=== PATIENT | male | born 1935 | race Caucasian/White ===

== ENCOUNTER 2019-03-16 09:43 | Emergency (ER) | payer OTHER, MEDICARE ==
[2019-03-16 10:09] VITALS: BP 103/49
--- NOTE | 2019-03-16 10:15 | ER Document Report ---
ED Medical Screen (RME) - General Chief Complaint: Flank Pain Stated Complaint: FLANK PAIN Time Seen by Provider: 03/16/19 10:11 Mode of Arrival: Ambulatory Information source: Patient Notes: 83-year-old male presented to ED for complaint of left flank pain times a week. He states she was seen at [facility] last week and started on antibiotics for UTI. He states he is not gotten better and has gotten worse. He states he drinks 4 beer a week smokes a pack a day for 66 years lives alone. He states he normally goes to the [facility]. Patient is alert oriented respirations regular and unlabored speaking in full sentences walks with even steady gait. I have greeted and performed a rapid initial assessment of this patient. A comprehensive ED assessment and evaluation of the patient, analysis of test results and completion of medical decision making process will be conducted by an additional ED providers. Dictation of this chart was performed using voice recognition software; therefore, there may be some unintended grammatical errors. TRAVEL OUTSIDE OF THE [place] IN LAST 30 DAYS: No Physical Exam - Vital signs Vitals: Temp Pulse Resp BP Pulse Ox 97.9 F 54 L 16 103/49 L 96 03/16/19 10:08 03/16/19 10:08 03/16/19 10:08 03/16/19 10:08 03/16/19 10:08 Course - Vital Signs Vital signs: Temp Pulse Resp BP Pulse Ox 97.9 F 54 L 16 103/49 L 96 03/16/19 10:08 03/16/19 10:08 03/16/19 10:08 03/16/19 10:08 03/16/19 10:08
[2019-03-16 10:44] LABS: ABSOLUTE BASOPHILS # (AUTO) 0.1 10^3/uL (0.0-0.2); ABSOLUTE EOSINOPHILS # (AUTO) 0.2 10^3/uL (0.0-0.6); ABSOLUTE LYMPHOCYTES (AUTO) 1.3 10^3/uL (0.5-4.7); ABSOLUTE MONOCYTES (AUTO) 0.8 10^3/uL (0.1-1.4); ABSOLUTE NEUT (AUTO) 7.8 10^3/uL (1.7-8.2); BASOPHILS % (AUTO) 0.8 % (0-2); EOSINOPHILS % (AUTO) 1.5 % (0-6); HEMATOCRIT 45.7 % (37.9-51.0); HEMOGLOBIN 15.5 g/dL (13.5-17.0); LYMPHOCYTES % (AUTO) 13.1 % (13-45); MEAN CORPUSCULAR HEMOGLOBIN 31.1 pg (27.0-33.4); MEAN CORPUSCULAR VOLUME 91 fl (80-97); MONOCYTES % (AUTO) 8.1 % (3-13); PLATELET COUNT 195 10^3/uL (150-450); RED CELL DISTRIBUTION WIDTH 13.9 % (11.5-14.0); SEGMENTED NEUTROPHILS % (AUTO) 76.5 % (42-78); TOTAL CELLS COUNTED % (AUTO) 100 %; WHITE BLOOD COUNT 10.2 10^3/uL (4.0-10.5)
[2019-03-16 11:00] LABS: URIC ACID CRYSTALS,URINE TOO NUMEROUS TO CNT /HPF
[2019-03-16 11:03] LABS: APPEARANCE,URINE SLIGHTLY HAZY; BILIRUBIN,URINE NEGATIVE (NEGATIVE); COLOR,URINE YELLOW; GLUCOSE, URINE NEGATIVE (NEGATIVE); KETONES,URINE NEGATIVE (NEGATIVE); LEUKOCYTE ESTERASE,URINE LARGE (NEGATIVE); NITRITE,URINE NEGATIVE (NEGATIVE); PROTEIN,URINE NEGATIVE (NEGATIVE); UROBILINOGEN,URINE NEGATIVE mg/dL (<2.0)
[2019-03-16 11:06] LABS: ALANINE AMINOTRANSFERASE 19 U/L (21-72); ALBUMIN 4.3 g/dL (3.5-5.0); ALKALINE PHOSPHATASE 56 U/L (38-126); ANION GAP 9 (5-19); ASPARTATE AMINO TRANSFERASE 22 U/L (17-59); BILIRUBIN,DIRECT 0.3 mg/dL (0.0-0.4); BILIRUBIN,TOTAL 0.4 mg/dL (0.2-1.3); BLOOD UREA NITROGEN 28 mg/dL (7-20); CALCIUM 9.2 mg/dL (8.4-10.2); CARBON DIOXIDE 25 mmol/L (22-30); CHLORIDE 106 mmol/L (98-107); CREATINE KINASE 40 U/L (55-170); GLUCOSE 91 mg/dL (75-110); POTASSIUM 5.1 mmol/L (3.6-5.0)
--- NOTE | 2019-03-16 12:04 | RADIOLOGY REPORT (SQ) ---
EXAM DESCRIPTION: CT ABD/PELVIS NO ORAL OR IV COMPLETED DATE/TIME: 03/16/2019 10:43 am REASON FOR STUDY: left flank pain COMPARISON: None. TECHNIQUE: CT scan of the abdomen and pelvis performed without intravenous or oral contrast. Images reviewed with lung, soft tissue, and bone windows. Reconstructed coronal and sagittal MPR images revi ewed. All images stored on PACS. All CT scanners at this facility use dose modulation, iterative reconstruction, and/or weight based d osing when appropriate to reduce radiation dose to as low as reasonably achievable (ALARA). [facility]: Dose Right [facility]: CareDose [facility]: Dose Right [facility]: Teradose 4D [facility]: Smart CardiOx RADIATION DOSE: CT Rad equipment meets quality standard of care and radiation dose reduction techniq ues were employed. CTDIvol: 8.6 mGy. DLP: 494 mGy-cm.mGy. LIMITATIONS: None. FINDINGS: LOWER CHEST: No significant findings. No nodules or infiltrates. NON-CONTRASTED LIVER, SPLEEN, ADRENALS: Evaluation limited by lack of IV contrast. No identified sign ificant masses. PANCREAS: No masses. No peripancreatic inflammatory changes. GALLBLADDER: Gallstones. RIGHT KIDNEY AND URETER: No suspicious masses. Assessment limited by lack of IV contrast. No signif icant calcifications. No hydronephrosis or hydroureter. LEFT KIDNEY AND URETER: Multiple peripelvic cysts. There is no dilatation of the collecting system. No significant calcifications. No hydronephrosis or hydroureter. AORTA AND RETROPERITONEUM: No aneurysm. No retroperitoneal masses or adenopathy. BOWEL AND PERITONEAL CAVITY: No obvious masses or inflammatory changes. No free fluid. APPENDIX: Normal. PELVIS, BLADDER, AND ABDOMINAL WALL:Bladder diverticular. No free fluid. BONES: No significant findings. OTHER: No other significant finding. IMPRESSION: No explanation for left flank pain. Peripelvic cysts on the left. No ureteral calculi. COMMENT: Quality ID # [id number]: Final reports with documentation of one or more dose reduction techniques (e.g., Automated exposure control, adjustment of the mA and/or kV according to patient size, use of iterative reconstruction technique) TECHNICAL DOCUMENTATION: JOB ID: [id number] [employer]- All Rights Reserved Reading location - IP/workstation name: [email or web address]
--- NOTE | 2019-03-16 12:16 | ER Document Report ---
HPI - HPI Patient complains to provider of: left flank pain Time Seen by Provider: 03/16/19 10:11 Onset/Duration: Gradual, Persistent Quality of pain: Achy Severity: Mild Pain Level: 2 Context: 83 yr old male pt with the listed pmh, here for left flank pain that radiates intermittently to his llq x a little over 1 week. saw pcp for similar about a week ago and placed on bactrim. initally had uti sx however states those are improving as his dysuria and frequency he was having are less, but due to the persistent left flank pain he came in for evaluation. he does have a hx of renal stones. states that feels different. no rash. he hasn't taken anything else for his sx. he endorses compliance with the bactrim. no trauma or injury. no hx of asthma. hx of type 2 diabetes. states his sugars are well controlled. normal bms. no other uti sx. no testicular pain/swelling, penile dc/rash/lesions, or concerns for stds. denies swelling or hx of hernias. no abd surgeries unless otherwise noted. no other recent abx or steroids. no hx of gerd, gb dz, pancreatitis, gi bleed, ulcers, ibs, diverticulitis, or crohns. no sick contacts. no uri sx. no excessive nsaid use or etoh. no recent illness. pain not worse with eating. denies changes in color or caliber of stool. no other associated sx. pcp is the [place]. Exacerbated by: denies: Movement, Deep breathing Relieved by: Remaining still Similar symptoms previously: No Recently seen / treated by doctor: No - ROS Systems Reviewed and Negative: Yes All other systems reviewed and negative - to include 10, unless mentioned in the hpi - DERM Skin Color: Normal Past Medical History - General Information source: Patient - Social History Smoking Status: Current Every Day Smoker Frequency of alcohol use: Occasional Drug Abuse: None Family History: Reviewed & Not Pertinent Patient has suicidal ideation: No Patient has homicidal ideation: No - Past Medical History Cardiac Medical History: Reports: Hx Coronary Artery Disease, Hx Hypercholesterolemia Pulmonary Medical History: Reports: Hx Sleep Apnea Endocrine Medical History: Reports: Hx Diabetes Mellitus Type 2 Renal/ Medical History: Reports: Hx Kidney Stones. Denies: Hx Peritoneal Dialysis Psychiatric Medical History: Reports: Hx Post Traumatic Stress Disorder Past Surgical History: Reports: Hx Cardiac Catheterization - 6 stents-remotely - Immunizations Immunizations up to date: Yes Vertical Provider Document - CONSTITUTIONAL Notes: >>>> PHYSICAL_EXAM: GENERAL_APPEARANCE: well_nourished, alert, cooperative, no_acute_distress, no obvious_discomfort. Pleasant, elderly, spry male, smiling, speaking in full sentences, easily sitting up, in no sign of pain or resp distress, nontoxic, no one is with him. VITALS: reviewed, see vital signs table. HEAD: normocephalic. atraumatic. no rhodes signs. no raccoon eyes. EYES: PERRL, EOMI, (-)scleral icterus. NOSE: no_nasal_discharge. MOUTH: (-)decreased moisture. THROAT: no_tonsilar_inflammation/hypertrophy/exudate. no lymphadenopathy NECK: supple, no_neck_tenderness, full rom. full strength. no meningeal signs. BACK: no_back_tenderness. no step offs or deformities or overlying skin changes CHEST_WALL: no_chest_tenderness. LUNGS: no_wheezing, (-)accessory muscle use, good air exchange bilateral. HEART: normal_rate, normal_rhythm,, ABDOMEN: normal_BS, soft, abdomen-diffuse non-tender, (-)guarding, (-)rebound, no distension or peritoneal signs. neg murphys. neg mcburneys. neg heel strike. neg obturator. neg psoas. neg rovsign. no cva tenderness on the right. questionable to minimal cva ttp on the left GENITALS: deferred RECTAL: deferred EXTREMITIES: strength 5/5 in all_extremities, good pulses in all_extremities, no_edema, no_swelling\tenderness. full rom. normal gait. brisk cap refill. good hand senior director of strategy. SKIN: warm, dry, good_color, no rash. no grossly visible overlying skin change s to suggest trauma unless otherwise noted. NEURO: motor_intact, sensory_intact. cranial nerves 2-12 intact, cerebellar fxn intact MENTAL_STATUS: normal_affect, speech_clear, oriented_X_3, respon ds_appropriately to questions. - INFECTION CONTROL TRAVEL OUTSIDE OF THE [place] IN LAST 30 DAYS: No Course - Re-evaluation Re-evalutation: 03/16/19 14:22 03/16/19 14:18 Patient here for left flank pain. He was recently put on Bactrim 7 days ago twice daily and has been compliant with it however he states his urinary symptoms have improved but his left flank pain has worsened over the last several days. He does have a prior history of kidney stones but states that feels different. He does not have a rash on exam however I did inform him he could have early shingles and what do to should he develop a rash. His labs were unremarkable other than a mild leukocytosis of 10,000, a creatinine of 1.63 with the last old available comparison of 1.1 in November 2018, a mildly elevated lipase, and a UTI on his UA. he has no abd ttp on exam. His urine culture is pending. The patient refused fluids and IV Rocephin however he did agree to get Rocephin IM and be discharged on Keflex as he stated he had some where else to be in the next 2 hours and he had to leave. His CT scan of his abdomen and pelvis without contrast was negative per radiology and reviewed by myself other than some incidental bladder diverticula without diverticulitis, gall stones without evidence of acute campos, and left renal peripelvic cysts. Patient was informed of his findings. Take medication as prescribed. He is advised to stop the Bactrim and start the keflex and have his renal function, labs, abnormal ct findings, and ua rechecked/worked up at his pcp in the next few days as i have no recent old avail for comparison. advised to drink plenty of water. he is neurononfocal. advised sx care. advised we will call him with any abnormal results that require change in plan of care. he is neurononfocal. nontoxic and well appearing. appears clinically hydrated and is tolerating po. advised tylenol prn any pain. Follow-up with his PCP/urologist in 1 to 2 days. Return for any worsening symptoms. Patient understands and agrees plan. vss. On reexam, pt improved with tx listed. remained stable. nontoxic. well appearing. pain controlled and didn't want anything here for pain. tolerating po. requesting to go home. case discussed with ER Attending, Dr. castaneda, who directed and agrees with plan of care and advised no further workup indicated at this time and pt is stable for dc home with close f/u with pcp/specialist. Documentation achieved through voice recording which my lead to some occasional accidental typographical errors. Extensive efforts have been made to proof read documentation to make sure these are the least as possible Category Date Time Status CT ABD/PELVIS NO ORAL OR IV [CT] Stat Exams 03/16/19 10:12 Completed CBC WITH DIFF [HEME] Stat Lab 03/16/19 10:25 Completed COMPREHENSIVE METABOLIC PANEL [CHEM] Stat Lab 03/16/19 10:25 Completed CREATINE KINASE MB [CHEM] Stat Lab 03/16/19 10:25 Completed CREATINE KINASE [CHEM] Stat Lab 03/16/19 10:25 Completed LIPASE [CHEM] Stat Lab 03/16/19 10:25 Completed URINALYSIS [URIN] Stat Lab 03/16/19 10:25 Completed URINE CULTURE [MC] Stat Lab 03/16/19 10:25 Completed Ceftriaxone 1 gm/D5w RTU [Rocephin RTU 1 gm/D5w 50 ml Med 03/16/19 14:00 Discontinued Premix] 1 gm in 50 ml IV NOW Ceftriaxone Sodium [Rocephin Inj 1000 mg Vial] Med 03/16/19 14:24 Discontinued 1,000 mg IM NOW ONE Lidocaine HCl/Pf [Xylocaine 1% Inj-Pf (10 mg/ml) 30 ml Med 03/16/19 14:27 Discontinued Sdv] 2.1 ml IM NOW ONE Lidocaine HCl/Pf [Xylocaine 1% Inj-Pf (10 mg/ml) 30 ml Med 03/16/19 14:28 Discontinued Sdv] 30 ml .ROUTE .STK-MED ONE Normal Saline [NaCl 0.9% 500 ml IV Soln] 500 ml Med 03/16/19 13:41 Discontinued IV NOW 04/03/19 21:41 - Vital Signs Vital signs: Temp Pulse Resp BP Pulse Ox 97.9 F 54 L 16 103/49 L 96 03/16/19 10:08 03/16/19 10:08 03/16/19 10:08 03/16/19 10:08 03/16/19 10:08 Temp Pulse Resp BP Pulse Ox 03/16/19 10:08 97.9 F 54 L 16 103/49 L 96 - Laboratory Result Diagrams: 03/16/19 10:25 03/16/19 10:25 Laboratory results interpreted by me: 03/16/19 03/16/19 10:25 10:25 Potassium 5.1 H BUN 28 H Creatinine 1.63 H Est GFR ( Amer) 49 L Est GFR (Non-Af Amer) 41 L ALT 19 L Creatine Kinase 40 L Urine pH 1.0 L Ur Leukocyte Esterase LARGE H Urine Ascorbic Acid 20 H Labs- Entire Visit 03/16/19 03/16/19 03/16/19 10:25 10:25 10:25 WBC 10.2 RBC 5.00 Hgb 15.5 Hct 45.7 MCV 91 MCH 31.1 MCHC 34.0 RDW 13.9 Plt Count 195 Seg Neutrophils % 76.5 Lymphocytes % 13.1 Monocytes % 8.1 Eosinophils % 1.5 Basophils % 0.8 Absolute Neutrophils 7.8 Absolute Lymphocytes 1.3 Absolute Monocytes 0.8 Absolute Eosinophils 0.2 Absolute Basophils 0.1 Sodium 140.0 Potassium 5.1 H Chloride 106 Carbon Dioxide 25 Anion Gap 9 BUN 28 H Creatinine 1.63 H Est GFR ( Amer) 49 L Est GFR (Non-Af Amer) 41 L Glucose 91 Calcium 9.2 Total Bilirubin 0.4 Direct Bilirubin 0.3 Neonat Total Bilirubin Not Reportable Neonat Direct Bilirubin Not Reportable Neonat Indirect Bili Not Reportable AST 22 ALT 19 L Alkaline Phosphatase 56 Creatine Kinase 40 L CK-MB (CK-2) 1.43 Total Protein 7.0 Albumin 4.3 Lipase Urine Color Urine Appearance Urine pH Ur Specific [place] Urine Protein Urine Glucose (UA) Urine Ketones Urine Blood Urine Nitrite Urine Bilirubin Urine Urobilinogen Ur Leukocyte Esterase Urine WBC (Auto) Urine RBC (Auto) Squamous Epi Cells Auto Uric Acid Cryst (Auto) Urine Mucus (Auto) Urine Ascorbic Acid 03/16/19 03/16/19 10:25 10:25 WBC RBC Hgb Hct MCV MCH MCHC RDW Plt Count Seg Neutrophils % Lymphocytes % Monocytes % Eosinophils % Basophils % Absolute Neutrophils Absolute Lymphocytes Absolute Monocytes Absolute Eosinophils Absolute Basophils Sodium Potassium Chloride Carbon Dioxide Anion Gap BUN Creatinine Est GFR ( Amer) Est GFR (Non-Af Amer) Glucose Calcium Total Bilirubin Direct Bilirubin Neonat Total Bilirubin Neonat Direct Bilirubin Neonat Indirect Bili AST ALT Alkaline Phosphatase Creatine Kinase CK-MB (CK-2) Total Protein Albumin Lipase 464.8 H Urine Color YELLOW Urine Appearance SLIGHTLY HAZY Urine pH 1.0 L Ur Specific [place] 1.020 Urine Protein NEGATIVE Urine Glucose (UA) NEGATIVE Urine Ketones NEGATIVE Urine Blood NEGATIVE Urine Nitrite NEGATIVE Urine Bilirubin NEGATIVE Urine Urobilinogen NEGATIVE Ur Leukocyte Esterase LARGE H Urine WBC (Auto) 40 Urine RBC (Auto) 14 Squamous Epi Cells Auto 2 Uric Acid Cryst (Auto) TOO NUMEROUS TO CNT Urine Mucus (Auto) RARE Urine Ascorbic Acid 20 H - Diagnostic Test Radiology reviewed: Image reviewed, Reports reviewed Radiology results interpreted by me: 03/16/19 14:22 Abdomen/Pelvis CT 03/16/19 10:12 IMPRESSION: No explanation for left flank pain. Peripelvic cysts on the left. No ureteral calculi. gallstones. bladder diverticula Discharge - Discharge Clinical Impression: Left flank pain, Pyelonephritis, Peripelvic (lymphatic) cyst, Gallstones, Bladder diverticulum UTI (urinary tract infection) Qualifiers: Urinary tract infection type: site unspecified Hematuria presence: with hematuria Qualified Code(s): N39.0 - Urinary tract infection, site not specified; R31.9 - Hematuria, unspecified Condition: Stable Disposition: HOME, SELF-CARE Instructions: Urinary Tract Infection ([facility]) Additional Instructions: Follow-up with PCP 1 to 2 days. Return for any worsening symptoms. drink plenty of fluids. stop taking the bactrim. start taking the keflex. you need to have your kidney function rechecked by your pcp in the next week. tylenol for any pain. ice/heat to your back. if you develop a rash over that area in the next few days, you may have shingles and need to f/u with your pcp or return here for get the medication for shingles as discussed. Prescriptions: Cephalexin Monohydrate [Keflex 500 mg Capsule] 500 mg PO BID 7 Days #14 capsule Forms: Smoking Cessation Education Referrals: [facility] [Primary Care Provider] - Follow up as needed
[2019-03-16] MEDS ORDERED: NORMAL SALINE 500 ML IV ONE (13:41)
[2019-03-16] MEDS ORDERED: CEFTRIAXONE 1 GM/D5W RTU 1 GM/50 ML RTUPB IV ONE (14:00)
[2019-03-16] MEDS ORDERED: CEFTRIAXONE INJ 1000 MG VIAL IM ONE (14:24)
[2019-03-16] MEDS ORDERED: LIDOCAINE 1% INJ-PF (10 MG/ML) 30 ML SDV IM ONE (14:27)
[2019-03-16] MEDS ORDERED: LIDOCAINE 1% INJ-PF (10 MG/ML) 30 ML SDV ONE (14:28)
== END 2019-03-16 14:40 | disposition home or self-care (01) ==
LOC: ER 09:43
DX: N12 Tubulo-interstitial nephritis, not specified as acute or chronic (principal); R31.9 Hematuria, unspecified; K80.20 Calculus of gallbladder without cholecystitis without obstruction; N32.3 Diverticulum of bladder; I89.8 Other specified noninfective disorders of lymphatic vessels and lymph nodes; R10.9 Unspecified abdominal pain; D72.829 Elevated white blood cell count, unspecified; R74.8 Abnormal levels of other serum enzymes; E11.9 Type 2 diabetes mellitus without complications; F17.200 Nicotine dependence, unspecified, uncomplicated; I25.10 Atherosclerotic heart disease of native coronary artery without angina pectoris; Z87.442 Personal history of urinary calculi
CPT/HCPCS: 99284; 96372; 36415; 87086; 82553; 82550; 83690; 85025; 80053; 81001; 74176; J3490; J0696